=== PATIENT | male | born 1990 | race Two or more races ===

== ENCOUNTER 2024-10-07 23:22 | Emergency (ER) | payer OTHER ==
[~2024-10-07] VITALS: Ht 188 cm; Wt 119.6 kg
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
[2024-10-08 01:30] VITALS: PULSE 81; RESP 18; O2SAT 98
--- NOTE | 2024-10-08 01:50 | DVH ---
EXAMINATION: XY R RIB XRAY INDICATION: Trauma COMPARISON: None TECHNIQUE: Frontal view of the chest and 4 views of the right ribs history FINDINGS: No focal consolidation, pleural effusion or significant pneumothorax. Normal cardiomediastinal silhou ette. No displaced right rib fracture. IMPRESSION: 1. No acute cardiopulmonary disease. No displaced right rib fracture.
[2024-10-08] MEDS ORDERED: IBUP-1455 PO (01:58)
[2024-10-08] MEDS: IBUPROFEN 800 MG TAB PO ONE (02:28)
[2024-10-08 02:30] VITALS: BP 143/93; PULSE 72; RESP 14; TEMP 98.3; O2SAT 100
== END 2024-10-08 02:26 | disposition home or self-care (01) ==
LOC: ER 23:27
DX: S20.211A Contusion of right front wall of thorax, initial encounter (principal); S80.11XA Contusion of right lower leg, initial encounter; V29.99XA Rider (driver) (passenger) of other motorcycle injured in unspecified traffic accident, initial encounter; Y93.89 Activity, other specified; Y92.488 Other paved roadways as the place of occurrence of the external cause; Y99.8 Other external cause status
CPT/HCPCS: 71101